=== PATIENT | female | born 1990 | race Caucasian/White ===

== ENCOUNTER 2017-03-22 04:56 | Inpatient (IN) | payer OTHER ==
[2017-03-22 05:52] VITALS: BMI 35.6
[2017-03-22 05:52] LABS: BASOPHIL 0.5 % (0-2.0); MCH 26.2 pg (25.7-33.7); MCHC 31.9 g/dl (32.0-36.0); MEAN CELL VOLUME 82.1 fl (80-96); MEAN PLT VOLUME 8.1 fl (7.5-11.1); NEUTROPHILS 71.1 % (42.8-82.8); PLATELET COUNT 328 K/MM3 (134-434); RDW 16.2 % (11.6-15.6); WHITE BLOOD COUNT 9.6 K/mm3 (4.0-10.0)
[2017-03-22 06:02] LABS: INR 0.94 (0.82-1.09); PROTHROMBIN TIME (PATIENT) 10.3 SEC (9.98-11.88)
[2017-03-22 06:05] LABS: ACTIVATED PTT 20.6 SECONDS (26.9-34.4)
[2017-03-22] MEDS ORDERED: CITRIC ACID/SODIUM CITRATE 30 ML UNIT-DOSE CUP PO ONE (06:27)
[2017-03-22] MEDS ORDERED: ELECTROLYTE-148 SOLN 500 ML IV ONE (06:27)
[2017-03-22 06:31] LABS: CREATININE 0.6 mg/dL (0.55-1.02); GLUCOSE,RANDOM 75 mg/dL (74-106)
[2017-03-22 06:32] LABS: ANION GAP 13 (8-16); CALCIUM 8.4 mg/dL (8.5-10.1); CO2 20 mmol/L (21-32)
--- NOTE | 2017-03-22 06:35 | HP ---
Past Medical History - Admission Chief Complaint: Rupture of membrane History of Present Illness: 26 yo @ 38 weeks gestation, with previous , presents c/o rupture of membrane. She c/o mild contractions pain. History Source: Patient Limitations to Obtaining History: No Limitations - Past Medical History ...: 2 ...Para: 1 ...: 1 ...LMP: 06/20/16 ... Weeks Gestation by Dates: 39.2 ...EDC by Dates: 03/27/17 ...EDC by Sono: 03/28/17 Infectious Disease: Yes: Other (h/o abn pap LSIL) - Past Surgical History Past Surgical History: Yes: None Hx Myomectomy: No Hx Transabdominal Cerclage: No - Smoking History Smoking history: Never smoked - Alcohol/Substance Use Hx Alcohol Use: No History of Substance Use: reports: None - Social History Usual Living Arrangement: Yes: With Significant Other History of Recent Travel: No Home Medications - Allergies Allergies/Adverse Reactions: Allergies Allergy/AdvReac Type Severity Reaction Status Date / Time No Known Allergies Allergy Verified 03/22/17 06:17 - Home Medications Home Medications: Ambulatory Orders Vit Calc,Iron,Folic [ Vitamins] 1 each PO DAILY 03/22/17 Family Disease History - Family Disease History Family History: Unremarkable Review of Systems - Review of Systems Constitutional: reports: No Symptoms Eyes: reports: No Symptoms HENT: reports: No Symptoms Neck: reports: No Symptoms Cardiovascular: reports: No Symptoms Respiratory: reports: No Symptoms Gastrointestinal: reports: No Symptoms Genitourinary: reports: Pain, Other (Rupture of membrane) Breasts: reports: No Symptoms Reported Musculoskeletal: reports: No Symptoms Integumentary: reports: No Symptoms Neurological: reports: No Symptoms Endocrine: reports: No Symptoms Hematology/Lymphatic: reports: No Symptoms Psychiatric: reports: No Symptoms Pain Intensity: 4 Physical Exam - Maternity Vital Signs: Vital Signs Temperature 97.7 F 03/22/17 04:56 Pulse Rate 95 H 03/22/17 04:56 Respiratory Rate 20 03/22/17 04:56 Blood Pressure 123/76 03/22/17 04:56 O2 Sat by Pulse Oximetry (%) - Abdominal Exam/OB Number of Fetuses: Single Presentation: Vertex - Vaginal Exam/OB Dilatation (cm): 1 Effacement (%): 70 Amniotic Fluid: Yes: Clear Presentation: Vertex/Position - Physical Exam Musculoskeletal: Yes: WNL Extremities: Yes: WNL Edema: Yes ...Motor Strength: WNL Psychiatric: Yes: Alert, Oriented - Labs Lab Results: CBC, BMP 03/22/17 05:30 Assessment/Plan Sponteneous rupture of membrane Previous Pre op for repeat Consent signed Anesthesia to see patient
[2017-03-22] MEDS ORDERED: ELECTROLYTE-148 SOLN 1,000 ML IV SCH (07:00)
[2017-03-22] MEDS ORDERED: METHYLERGONOVINE MALEATE 0.2 MG/1 ML AMP IM PRN (07:45)
--- NOTE | 2017-03-22 07:50 | OP ---
Operative Note - Note: Operative Date: 03/22/17 Pre-Operative Diagnosis: Previous in labor Operation: Repeat Low Transverse Findings: Baby girl in ROT position Post-Operative Diagnosis: Same as Pre-op Surgeon: Aixa Hernandez Proposal Analyst: Ayaan Martinez Anesthesia: Spinal Specimens Removed: Placenta Estimated Blood Loss (mls): 500
[2017-03-22] MEDS ORDERED: ONDANSETRON 4 MG/2 ML VIAL IVPB PRN (08:04)
[2017-03-22 09:17] LABS: URINE MARIJUANA THC NEGATIVE ng/ml (CUTOFF=50)
[2017-03-22] MEDS: D5W-LR W/ 20 UNITS OXYTOCIN 1,000 ML IV SCH ×2 (10:00→18:23)
[2017-03-22] MEDS: SIMETHICONE 80 MG TAB.CHEW (FP) PO PRN (21:20)
[2017-03-22] MEDS: ACETAMINOPHEN 325 MG TABLET (FP) PO PRN (21:21)
[2017-03-22] MEDS: IBUPROFEN 600 MG TABLET (FP) PO PRN (21:21)
[2017-03-23] MEDS: SIMETHICONE 80 MG TAB.CHEW (FP) PO PRN ×3 (04:51→19:57)
[2017-03-23] MEDS: ACETAMINOPHEN 325 MG TABLET (FP) PO PRN ×3 (04:52→19:57)
[2017-03-23] MEDS: IBUPROFEN 600 MG TABLET (FP) PO PRN ×3 (04:52→19:58)
[2017-03-23] MEDS ORDERED: BISACODYL 10 MG SUPP.RECT RC PRN (07:45)
--- NOTE | 2017-03-23 07:45 | PN ---
Post Progress Note - Subjective Subjective: 26 yo Para 2, status post repeat , seen and evaluated. She c/o incision pain. Post Day: 1 Type of Delivery: Repeat C/S Vital Signs: Vital Signs Temperature 98.7 F 03/23/17 06:00 Pulse Rate 85 03/23/17 06:00 Respiratory Rate 18 03/23/17 06:00 Blood Pressure 108/56 03/23/17 06:00 O2 Sat by Pulse Oximetry (%) 99 03/22/17 09:00 Breast Exam: Yes: Soft Uterus: Yes: Fundus Firm Incision: Yes: Dressing dry and intact Abdomen/GI: Yes: Abdomen soft Lochia: Yes: Rubra Lochia, amount: Small Extremities: Yes: Calves non-tender Perineum: Yes: Intact Activity: Ambulating - Labs Labs: CBC WBC 9.6 K/mm3 (4.0-10.0) 03/22/17 05:30 RBC 3.89 M/mm3 (3.60-5.2) 03/22/17 05:30 Hgb 10.2 GM/dL (10.7-15.3) L 03/22/17 05:30 Hct 32.0 % (32.4-45.2) L 03/22/17 05:30 MCV 82.1 fl (80-96) 03/22/17 05:30 MCHC 31.9 g/dl (32.0-36.0) L 03/22/17 05:30 RDW 16.2 % (11.6-15.6) H 03/22/17 05:30 Plt Count 328 K/MM3 (134-434) 03/22/17 05:30 MPV 8.1 fl (7.5-11.1) 03/22/17 05:30 Neutrophils % 71.1 % (42.8-82.8) 03/22/17 05:30 Lymphocytes % 19.0 % (8-40) D 03/22/17 05:30 Monocytes % 8.4 % (3.8-10.2) 03/22/17 05:30 Eosinophils % 1.0 % (0-4.5) 03/22/17 05:30 Basophils % 0.5 % (0-2.0) 03/22/17 05:30 Problem List - Problems (1) Status post repeat low transverse section Code(s): Z98.891 - HISTORY OF UTERINE SCAR FROM PREVIOUS SURGERY Assessment/Plan Status post repeat Stable Ambulation Analgesia as needed Continue routine Post op care
[2017-03-23 07:55] LABS: BASOPHIL 0.2 % (0-2.0); EOSINOPHIL 2.3 % (0-4.5); MCH 26.8 pg (25.7-33.7); MCHC 32.5 g/dl (32.0-36.0); MEAN CELL VOLUME 82.4 fl (80-96); MEAN PLT VOLUME 7.3 fl (7.5-11.1); NEUTROPHILS 75.6 % (42.8-82.8); PLATELET COUNT 211 K/MM3 (134-434); RDW 16.3 % (11.6-15.6)
--- NOTE | 2017-03-23 09:53 | PN ---
Progress Note (short form) - Note Progress Note: Post op day#1.S/P C section under spinal anesthesia with duramorph uneventful.Patient stable and does not c/o pain.No any anesthesia related problem.Patient Dc from the anesthesia care.
[2017-03-23] MEDS: oxyCODONE HCL 5 MG TABLET PO PRN (22:08)
[2017-03-24] MEDS: SIMETHICONE 80 MG TAB.CHEW (FP) PO PRN ×3 (02:08→20:35)
[2017-03-24] MEDS: ACETAMINOPHEN 325 MG TABLET (FP) PO PRN ×3 (02:08→21:50)
[2017-03-24] MEDS: oxyCODONE HCL 5 MG TABLET PO PRN ×3 (02:08→20:35)
--- NOTE | 2017-03-24 06:25 | PN ---
Post Progress Note Type of Delivery: Repeat C/S Vital Signs: Vital Signs Temperature 99.1 F 03/23/17 20:57 Pulse Rate 99 H 03/23/17 20:57 Respiratory Rate 18 03/23/17 20:57 Blood Pressure 127/68 03/23/17 20:57 O2 Sat by Pulse Oximetry (%) 99 03/22/17 09:00 Breast Exam: Yes: Soft Uterus: Yes: Fundus Firm Incision: Yes: Dressing dry and intact Abdomen/GI: Yes: Abdomen soft Lochia: Yes: Rubra Perineum: Yes: Intact Activity: Ambulating - Labs Labs: CBC WBC 10.0 K/mm3 (4.0-10.0) 03/23/17 06:30 RBC 3.58 M/mm3 (3.60-5.2) L 03/23/17 06:30 Hgb 9.6 GM/dL (10.7-15.3) L 03/23/17 06:30 Hct 29.5 % (32.4-45.2) L 03/23/17 06:30 MCV 82.4 fl (80-96) 03/23/17 06:30 MCHC 32.5 g/dl (32.0-36.0) 03/23/17 06:30 RDW 16.3 % (11.6-15.6) H 03/23/17 06:30 Plt Count 211 K/MM3 (134-434) D 03/23/17 06:30 MPV 7.3 fl (7.5-11.1) L 03/23/17 06:30 Neutrophils % 75.6 % (42.8-82.8) 03/23/17 06:30 Lymphocytes % 13.7 % (8-40) D 03/23/17 06:30 Monocytes % 8.2 % (3.8-10.2) 03/23/17 06:30 Eosinophils % 2.3 % (0-4.5) D 03/23/17 06:30 Basophils % 0.2 % (0-2.0) 03/23/17 06:30 Assessment/Plan doing well no issues pain control
--- NOTE | 2017-03-24 09:33 | OP ---
DATE OF OPERATION: 03/22/2017 PREOPERATIVE DIAGNOSIS: rupture of membrane, previous section, in labor. POSTOPERATIVE DIAGNOSIS: rupture of membrane, previous section, in labor. PROCEDURE: Repeat low transverse section. SURGEON: Aixa Hernandez MD ANESTHESIA: Spinal. COMPLICATIONS: None. ESTIMATED BLOOD LOSS: 500 mL. DESCRIPTION OF PROCEDURE: Patient was taken to the operating room, where spinal anesthesia was administered. Patient was then prepped and draped in proper sterile fashion. A Pfannenstiel skin incision was made and carried down through the underlying layer of fascia. The fascia was incised in the midline and extended laterally. The superior aspect of the fascial incision was then grasped with Yessi clamps, elevated, and the rectus muscle dissected out bluntly. Attention was then turned to the inferior aspect of the fascial incision, which in a similar fashion was then grasped with the Yessi clamp, elevated, and the rectus muscle dissected out bluntly. The rectus muscle was then in the midline. The peritoneum was then identified and entered sharply with the Metzenbaum scissors. This peritoneal incision was then extended superiorly and inferiorly with good visualization of the bladder. The vesicouterine peritoneum was then grasped with a pickup and entered sharply with the Metzenbaum scissors. An 11-blade was used to incise the lower uterine segment. This incision was extended laterally, and the head delivered atraumatically. Nose and mouth were suctioned, and the cord clamped, and cut. The was handed to the awaiting animal care assistant. Then, the placenta was then removed manually. The uterus exteriorized and cleared of all clots and debris. The uterine incision was repaired using 0 Biosyn. The second layer of the same suture was used as a means to provide excellent hemostasis. Then, the pelvis was then completely irrigated. The uterus was returned to the abdomen. The peritoneum was closed using 2-0 Biosyn. The fascia was reapproximated using 0 Vicryl in a running fashion. The skin was closed with rashid. Patient tolerated the procedure well. Patient was taken to PACU in stable condition. PATHOLOGY: Placenta. Nkechi SOW/[id number]
[2017-03-24] MEDS: IBUPROFEN 600 MG TABLET (FP) PO PRN ×2 (11:01→20:37)
--- NOTE | 2017-03-25 05:36 | PN ---
Post Progress Note - Subjective Subjective: c/o severe pain incision & crmaps last night . presently pain scale 3/10 voiding without difficulty Post Day: 3 Type of Delivery: Repeat C/S Vital Signs: Vital Signs Temperature 98.2 F 03/24/17 22:00 Pulse Rate 104 H 03/24/17 22:00 Respiratory Rate 18 03/24/17 22:00 Blood Pressure 118/70 03/24/17 22:00 O2 Sat by Pulse Oximetry (%) 99 03/22/17 09:00 Breast Exam: Yes: Soft, Other (bottle & breast feeding ). No: Engorged Uterus: Yes: Fundus Firm, Fundus below umbilicus Incision: Yes: Spencer intact. No: Redness, Oozing Abdomen/GI: Yes: Abdomen soft, Passing flatus, Tolerating PO (diet ). No: Abdominal Distention, Tender Lochia: Yes: Rubra Lochia, amount: Moderate Extremities: Yes: Calves non-tender, Edema (2+legs ) Perineum: Yes: Intact Activity: Ambulating - Labs Labs: CBC WBC 10.0 K/mm3 (4.0-10.0) 03/23/17 06:30 RBC 3.58 M/mm3 (3.60-5.2) L 03/23/17 06:30 Hgb 9.6 GM/dL (10.7-15.3) L 03/23/17 06:30 Hct 29.5 % (32.4-45.2) L 03/23/17 06:30 MCV 82.4 fl (80-96) 03/23/17 06:30 MCHC 32.5 g/dl (32.0-36.0) 03/23/17 06:30 RDW 16.3 % (11.6-15.6) H 03/23/17 06:30 Plt Count 211 K/MM3 (134-434) D 03/23/17 06:30 MPV 7.3 fl (7.5-11.1) L 03/23/17 06:30 Neutrophils % 75.6 % (42.8-82.8) 03/23/17 06:30 Lymphocytes % 13.7 % (8-40) D 03/23/17 06:30 Monocytes % 8.2 % (3.8-10.2) 03/23/17 06:30 Eosinophils % 2.3 % (0-4.5) D 03/23/17 06:30 Basophils % 0.2 % (0-2.0) 03/23/17 06:30 Assessment/Plan pos c/s day #3 pt still expertiencing pain, she is not sure if she wants to go home today. cbs today
[2017-03-25] MEDS: SIMETHICONE 80 MG TAB.CHEW (FP) PO PRN ×3 (07:31→22:11)
[2017-03-25] MEDS: IBUPROFEN 600 MG TABLET (FP) PO PRN ×3 (07:32→22:11)
[2017-03-25] MEDS: ACETAMINOPHEN 325 MG TABLET (FP) PO PRN ×3 (07:33→22:10)
[2017-03-25 08:08] LABS: BASOPHIL 0.5 % (0-2.0); EOSINOPHIL 3.6 % (0-4.5); MCH 26.9 pg (25.7-33.7); MCHC 32.2 g/dl (32.0-36.0); MEAN CELL VOLUME 83.5 fl (80-96); MEAN PLT VOLUME 7.3 fl (7.5-11.1); NEUTROPHILS 70.8 % (42.8-82.8); PLATELET COUNT 265 K/MM3 (134-434); RDW 16.3 % (11.6-15.6); WHITE BLOOD COUNT 8.9 K/mm3 (4.0-10.0)
[2017-03-25 22:31] VITALS: PULSE 84
[2017-03-26 11:06] VITALS: BP 128/61; TEMP 97.7
--- NOTE | 2017-03-26 16:22 | PATH ---
Surgical Pathology Report Patient Name: ANKIT OTOOLE Med. Rec. 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 Specimen(s) Received PLACENTA Clinical History 26 yo female for repeat c/section; previous C/section with PROM in labor, 03-06-2016 Final Diagnosis PLACENTA, DELIVERY: FOCALLY DISRUPTED THIRD TRIMESTER PLACENTA WITH MODERATE PREVILLOUS, PERIVILLOUS, AND PRECHORIONIC FIBRIN DEPOSITION, THREE VESSEL UMBILICAL CORD, AND PLACENTAL MEMBRANES WITH FOCAL ACUTE CHORIOAMNIONITIS. Electronically Signed Ran Jackson M.D. Gross Description The specimen is received fresh, labeled "placenta" and is a 454 gram, 17.0 x 15.5 x 2.6 cm placenta with attached membranes and umbilical cord. The attached membranes are liao, thickened, cloudy and insert marginally. The umbilical cord measures 34 cm in length and averages 0.9 cm in diameter. The cord inserts eccentrically, 3.5 cm. to the nearest margin. No true knots or strictures are identified. Cut surface of the umbilical cord reveals 3 vessels. The surface is melo-blue with fibrin deposition and appropriate caliber vessels. The maternal surface is red-brown with focal defects. Sectioning reveals red-brown, spongy parenchyma. No focal lesions are identified. Chief Legal Officer sections are submitted in three cassettes as follows: 1- membrane rolls and umbilical cord; 2-3- full thickness sections of placenta. 03/24/2017 [facility]
== END 2017-03-26 12:00 | disposition home or self-care (01) | DRG 540 ==
LOC: JLDR 04:56 → J3W 09:03
PROVIDERS: ADMIT Obstetrics & Gynecology; ATTEND Obstetrics & Gynecology
PROC: 10D00Z1 Extraction of Products of Conception, Low, Open Approach (ICD-10-PCS; principal; 2017-03-22)
DX: O34.211 Maternal care for low transverse scar from previous cesarean delivery (principal); Z3A.38 38 weeks gestation of pregnancy; Z37.0 Single live birth; O41.1230 Chorioamnionitis, third trimester, not applicable or unspecified
CPT/HCPCS: 36415; 80048; 80307; 85025; 85610; 85730; 86593; 86850; 86900; 86901; 88307-TC

== ENCOUNTER → 2017-04-23 | Emergency (ER) | payer OTHER ==
[2017-04-23 21:16] VITALS: BP 111/67; PULSE 76; TEMP 98; BMI 31.1
--- NOTE | 2017-04-23 21:49 | PDOC ---
History of Present Illness - General Chief Complaint: Back Pain Stated Complaint: PAIN Time Seen by Provider: 04/23/17 21:49 - History of Present Illness Initial Comments: 26 year old female with history of x2 with most recent being one month ago presenting with left mid back pain radiating to her abdomen. She states she first had this pain one month ago after she had her that went away with some Alleve. However, over the past 4 days the pain has returned and is not remitting with the same Alleve. The pain itself is described as dull achy pain that wraps around her left flank and radiates to her lower abdomen. Also endorses some chills, darkened urine, nausea, vomiting, and diarrhea over the past few days. She has no other medical history and denies any chest pain, hematuria, cough, SOB, or other sick symptoms. 04/23/17 22:38 04/23/17 22:59 Past History - Past Medical History Allergies/Adverse Reactions: Allergies Allergy/AdvReac Type Severity Reaction Status Date / Time No Known Allergies Allergy Verified 04/23/17 21:14 Home Medications: Ambulatory Orders Levofloxacin [Levaquin -] 250 mg PO DAILY #3 tablet 04/23/17 Asthma: No Cancer: No Cardiac Disorders: No Diabetes: No HTN: No Seizures: No Thyroid Disease: No Other medical history: Pt denies - Psycho/Social/Smoking Cessation Hx Suicidal Ideation: No Smoking History: Never smoked Information on smoking cessation initiated: No Hx Alcohol Use: No Drug/Substance Use Hx: No Substance Use Type: None Hx Substance Use Treatment: No Review of Systems - Review of Systems Constitutional: Yes: Chills, Diaphoresis. No: Night Sweats, Weakness HEENTM: No: Blurred Vision, Recent change in vision Respiratory: No: Cough, Shortness of Breath, SOB with Exertion Cardiac (ROS): No: Chest Pain, Edema, Irregular Heart Rate, Lightheadedness ABD/GI: Yes: Diarrhea, Nausea. No: Constipated, Vomiting : Yes: Other (darkening of urine, non bloody). No: Burning, Dysuria, Discharge Musculoskeletal: Yes: Back Pain. No: Joint Pain Neurological: No: Headache, Weakness *Physical Exam - Vital Signs Last Vital Signs Temp Pulse Resp BP Pulse Ox 98.0 F 76 20 111/67 100 04/23/17 21:14 04/23/17 21:14 04/23/17 21:14 04/23/17 21:14 04/23/17 21:14 - Physical Exam General Appearance: Yes: Appropriately Dressed. No: Apparent Distress HEENT: positive: ANGELA, Normal Voice Neck: positive: Normal Thyroid, Supple. negative: Tender, Rigid Respiratory/Chest: positive: Lungs Clear, Normal Breath Sounds. negative: Chest Tender, Respiratory Distress, Accessory Muscle Use Cardiovascular: positive: Regular Rhythm, Regular Rate, S1, S2. negative: Edema , Murmur Gastrointestinal/Abdominal: positive: Normal Bowel Sounds, Flat, Soft. negative : Tender, Organomegaly Musculoskeletal: positive: Normal Inspection. negative: CVA Tenderness, CVA Tenderness (R), CVA Tenderness (L) Extremity: positive: Normal Capillary Refill, Normal Inspection, Normal Range of Motion Integumentary: positive: Normal Color, Dry, Warm Neurologic: positive: Fully Oriented, Alert ED Treatment Course - LABORATORY CBC & Chemistry Diagram: 04/23/17 22:40 04/23/17 22:40 Medical Decision Making - Medical Decision Making Healthy 26 year old presenting with left mid back pain radiating to abdomen most concerning for urinary stone vs. UTI. Currently patient is comfortable. Will get UA, U preg, CBC, CMP, and Lipase. Will give Toradol 15 if needed. Pain less likely any acute intra abdominal pathology given benign abdominal exam. 04/23/17 23:01 04/23/17 23:24 UA positive for 4+ Nitrites and Leuk Esterase with 1+ blood. Will prescribe Levaquin and send home for presumed UTI. *DC/Admit/Observation/Transfer Diagnosis at time of Disposition: UTI (urinary tract infection) - Discharge Dispostion Disposition: HOME Condition at time of disposition: Improved Admit: No - Prescriptions Prescriptions: Levofloxacin [Levaquin -] 250 mg PO DAILY #3 tablet - Referrals Referrals: Serene Maradiaga MD [Primary Care Provider] - - Patient Instructions Printed Discharge Instructions: Urinary Tract Infection Additional Instructions: You were seen for back pain. We believe that this most likely a urinary tract infection. Please take your antibiotics as prescribed. Please return if you have pain that isn't controlled with your medications or you have worsening fever, worsening chills, or other new issues. - Attestations Physician Attestion: 04/23/17 23:29 I, Dr. Bartolome Aleman, attest that this document has been prepared under my direction and personally reviewed by me in its entirety. I further attest, that it accurately reflects all work, treatment, procedures and medical decision -making performed by me.
--- NOTE | 2017-04-23 22:48 | PDOC ---
Attending Attestation - Resident Resident Name: Bartolome Aleman - ED Attending Attestation I have performed the following: I have examined & evaluated the patient, The case was reviewed & discussed with the resident, I agree w/resident's findings & plan <Trenton Cabrera - Last Filed: 04/23/17 22:47> - Resident Resident Name: Bartolome Aleman - ED Attending Attestation I have performed the following: I have examined & evaluated the patient, The case was reviewed & discussed with the resident, I agree w/resident's findings & plan, Exceptions are as noted - HPI HPI: The patient is a 26 yo F with a PMHx of c section 1 month ago who presents with flank pain that radiates towards the lower abdomen. The patient denies nausea, vomiting and diarrhea. The patient denies chest pain, palpitations and lightheadedness. The patient denies hematuria, dysuria, frequency and urgency. - Physicial Exam PE: GENERAL: Well-appearing, well-nourished. No apparent distress. HEENT: Normocephalic, atraumatic. PERRL, EOM intact. CARDIOVASCULAR: Normal S1, S2. Regular rate and rhythm. PULMONARY: Clear to auscultation bilaterally. ABDOMEN: Soft, non-distended, non-tender. EXTREMITIES: Normal ROM in all four extremities. No gross deformities. SKIN: Warm, dry. No rash NEUROLOGICAL: No focal neurological deficits. - Medical Decision Making Documentation prepared by Irene Millard, acting as medical lab tech instructor for Trenton Cabrera MD/DO. <Irene Millard - Last Filed: 04/23/17 23:27>
[2017-04-23 22:55] LABS: MCH 26.2 pg (25.7-33.7); MCHC 31.6 g/dl (32.0-36.0); MEAN CELL VOLUME 82.9 fl (80-96); MEAN PLT VOLUME 8.6 fl (7.5-11.1); PLATELET COUNT 293 K/MM3 (134-434); WHITE BLOOD COUNT 7.6 K/mm3 (4.0-10.0)
[2017-04-23 23:05] LABS: URINE APPEARANCE CLEAR; URINE BLOOD 1+ (NEGATIVE); URINE COLOR AMBER; URINE GLUCOSE (UA) NEGATIVE (NEGATIVE); URINE KETONE TRACE (NEGATIVE); URINE NITRITE POSITIVE (NEGATIVE); URINE UROBILINOGEN 4.0 E.U/dl mg/dL (0.2-1.0)
[2017-04-23 23:08] LABS: URINE LEUK ESTERASE 1+ (NEGATIVE); URINE PROTEIN 1+ (NEGATIVE)
[2017-04-23 23:15] LABS: URINE BACTERIA RARE /hpf (NONE SEEN); URINE MUCUS RARE; URINE RBC 45 /hpf (0-3); URINE WBC 45 /hpf (3-5)
[2017-04-23 23:29] LABS: ALBUMIN 3.6 g/dl (3.4-5.0); ALK PHOS 359 U/L (45-117); ANION GAP 10 (8-16); BILIRUBIN,TOTAL 3.8 mg/dL (0.2-1.0); CALCIUM 8.9 mg/dL (8.5-10.1); CO2 27 mmol/L (21-32); CREATININE 0.6 mg/dL (0.55-1.02); GLUCOSE,RANDOM 90 mg/dL (74-106); SGOT/AST 149 U/L (15-37); SGPT/ALT 218 U/L (12-78); TOT PROT 6.8 g/dl (6.4-8.2)
== END | disposition home or self-care (01) ==
LOC: JER 20:47
DX: O86.20 Urinary tract infection following delivery, unspecified (principal)
CPT/HCPCS: 36415; 80053; 81003; 81015; 83690; 84703; 85027; 87086; 99283-25

== ENCOUNTER 2022-03-05 05:21 | Emergency (ER) | payer OTHER ==
[2022-03-05] MEDS ORDERED: SODIUM CHLORIDE 0.9% 500 ML INFUS.BAG IV ONE (05:51)
[2022-03-05] MEDS ORDERED: ONDANSETRON 4 MG/2 ML VIAL IVPUSH ONE (05:51)
[2022-03-05] MEDS ORDERED: KETOROLAC TROMETHAMINE 30 MG/1 ML VIAL IVPUSH ONE (05:51)
[2022-03-05 05:57] VITALS: BMI 31.8
[2022-03-05] MEDS ORDERED: KETOROLAC TROMETHAMINE 30 MG/1 ML VIAL ONE (06:18)
[2022-03-05] MEDS ORDERED: ONDANSETRON 4 MG/2 ML VIAL ONE (06:18)
[2022-03-05] MEDS ORDERED: morphine CARPU-JECT 2 MG/1 ML DISP.SYRIN IVPUSH ONE (06:26)
[2022-03-05 07:27] LABS: BASO % 0.5 % (0-2.0); HEMOGLOBIN 13.3 GM/dL (10.7-15.3); LYMPH % 41.4 % (8-40); MCH 31.9 pg (25.7-33.7); MEAN CELL VOLUME 90.9 fl (80-96); MEAN PLT VOLUME 8.2 fl (7.5-11.1); MONO % 7.2 % (3.8-10.2); NEUT % 47.9 % (42.8-82.8); PLATELET COUNT 334 10^3/uL (134-434); RBC 4.18 M/mm3 (3.60-5.2); RDW 13.3 % (11.6-15.6); WHITE BLOOD COUNT 7.7 K/mm3 (4.0-10.0)
[2022-03-05 07:50] LABS: ALBUMIN 4.1 g/dl (3.4-5.0); CALCIUM 9.1 mg/dL (8.5-10.1)
[2022-03-05 07:55] LABS: TOT PROT 7.3 g/dl (6.4-8.2)
[2022-03-05 08:18] LABS: EPI CELLS >36 /uL (0-25.1); HYALINE CASTS 4 /uL (0-3.1); PH,URINE 6.5 (5.0-8.0); URINE APPEARANCE TURBID; URINE BACTERIA 3240 /uL (0-1359); URINE BILIRUBIN NEGATIVE (NEGATIVE); URINE COLOR ORANGE; URINE GLUCOSE (UA) NEGATIVE (NEGATIVE); URINE KETONE TRACE (NEGATIVE); URINE LEUK ESTERASE TRACE (NEGATIVE); URINE NITRITE NEGATIVE (NEGATIVE); URINE PROTEIN 1+ (NEGATIVE); URINE RBC 13192 /uL (0-23.9); URINE WBC 78 /uL (0-25.8)
[2022-03-05 08:19] LABS: HCG,QUALITATIVE URINE Negative
[2022-03-05 12:25] VITALS: BP 116/65; PULSE 82; TEMP 97.8
[2022-03-05 14:32] LABS: EPI CELLS 16 /uL (0-25.1); HYALINE CASTS 1 /uL (0-3.1); URINE APPEARANCE CLEAR; URINE BACTERIA 318 /uL (0-1359); URINE BILIRUBIN NEGATIVE (NEGATIVE); URINE COLOR YELLOW; URINE GLUCOSE (UA) NEGATIVE (NEGATIVE); URINE KETONE NEGATIVE (NEGATIVE); URINE LEUK ESTERASE NEGATIVE (NEGATIVE); URINE NITRITE NEGATIVE (NEGATIVE); URINE PROTEIN NEGATIVE (NEGATIVE); URINE RBC 3408 /uL (0-23.9); URINE UROBILINOGEN 0.2 mg/dL (0.2-1.0); URINE WBC 23 /uL (0-25.8)
== END 2022-03-05 15:05 | disposition home or self-care (01) ==
LOC: JER 05:21
PROC: 3E033GC Introduction of Other Therapeutic Substance into Peripheral Vein, Percutaneous Approach (ICD-10-PCS; principal; 2022-03-05)
DX: N39.0 Urinary tract infection, site not specified (principal); R31.9 Hematuria, unspecified; R10.32 Left lower quadrant pain
CPT/HCPCS: 36415; 74176-TC; 76830-TC; 80053; 81003; 84703; 85025; 87070; 87086; 87186; 87205; 87491; 87591; 99285-25